=== PATIENT | female | born 1945 | race Caucasian/White ===

== ENCOUNTER 2017-01-28 08:07 | Emergency (ER) | payer MEDICARE ==
[2017-01-28 08:27] LABS: Glucose,Whole Blood 134 mg/dL (75-99)
[2017-01-28] MEDS ORDERED: SODIUM CHLORIDE 0.9% 1,000 ML IV ONE (08:29)
--- NOTE | 2017-01-28 08:43 | ED ---
General Adult HPI - General Chief complaint: Syncope Stated complaint: Head lac/passed out Time Seen by Provider: 01/28/17 08:15 Source: patient, RN notes reviewed Mode of arrival: wheelchair Limitations: no limitations - History of Present Illness Initial comments: This is a 71-year-old female who presents to the emergency department after having been lightheaded and falling down. Patient states she went to the bathroom this morning and was a little sweaty and felt lightheaded and then she fell backwards hitting her head on the counter on the way down and cut the back of her head. Patient states she never was completely unconscious but she was too weak to get up she laid on the floor for 10 minutes. Patient denies any chest pain palpitations difficulty breathing or shortness of breath. Patient denies any fever chills. Patient states currently she feels fine except for a little throbbing in the back of her head. Patient denies any neck pain patient denies numbness weakness. Patient denies any back pain patient denies any extremity pain. Patient denies any abdominal pain. - Related Data Home Medications Medication Instructions Recorded Confirmed Metoprolol Tartrate [Lopressor] 50 mg PO DAILY 01/28/17 01/28/17 Triamterene-Hctz 75-50Mg [Maxzide 1 tab PO DAILY 01/28/17 01/28/17 75-50] amLODIPine [Norvasc] 10 mg PO DAILY 01/28/17 01/28/17 Allergies Allergy/AdvReac Type Severity Reaction Status Date / Time prednisone AdvReac Nausea & Verified 01/28/17 09:09 Vomiting & Diarrhea Review of Systems ROS Statement: Those systems with pertinent positive or pertinent negative responses have been documented in the HPI. ROS Other: All systems not noted in ROS Statement are negative. Past Medical History Past Medical History: Hypertension History of Any Multi-Drug Resistant Organisms: None Reported Past Surgical History: Tubal Ligation Past Psychological History: No Psychological Hx Reported Smoking Status: Current every day smoker Past Alcohol Use History: Occasional Past Drug Use History: None Reported General Exam - General Exam Comments Initial Comments: GENERAL: Patient is well-developed and well-nourished. Patient is nontoxic and well- hydrated and is in no acute distress. ENT: Neck is soft and supple. No significant lymphadenopathy is noted. Oropharynx is clear. Moist mucous membranes. Neck has full range of motion without eliciting any pain. EYES: The sclera were anicteric and conjunctiva were pink and moist. Extraocular movements were intact and pupils were equal round and reactive to light. Eyelids were unremarkable. PULMONARY: Unlabored respirations. Good breath sounds bilaterally. No audible rales rhonchi or wheezing was noted. CARDIOVASCULAR: There is a regular rate and rhythm without any murmurs gallops or rubs. ABDOMEN: Soft and nontender with normal bowel sounds. No palpable organomegaly was noted. There is no palpable pulsatile mass. SKIN: Patient has a laceration to the posterior aspect of her scalp measuring about 3 cm. NEUROLOGIC: Patient is alert and oriented x3. Cranial nerves II through XII are grossly intact. Motor and sensory are also intact. Normal speech, volume and content. Symmetrical smile. MUSCULOSKELETAL: Normal extremities with adequate strength and full range of motion. No lower extremity swelling or edema. No calf tenderness. LYMPHATICS: No significant lymphadenopathy is noted PSYCHIATRIC: Normal psychiatric evaluation. Limitations: no limitations Course Vital Signs 01/28/17 01/28/17 01/28/17 08:16 08:49 09:48 Temperature 97.1 F L Pulse Rate 60 60 Pulse Rate [ 56 L Sitting] Pulse Rate [ 60 Standing] Pulse Rate [ 56 L Supine] Respiratory 16 18 Rate Blood Pressure 105/58 135/64 Blood Pressure 121/60 [Sitting] Blood Pressure 110/70 [Standing] Blood Pressure 117/59 [Supine] O2 Sat by Pulse 100 100 Oximetry Procedures - Laceration Laceration #1 Consent Obtained: verbal consent Time Out Performed: Yes Indication: laceration Site: scalp, upper extremity Description: linear Type of Sutures: other (Use oleg 4) Medical Decision Making - Medical Decision Making EKG shows sinus bradycardia 56 bpm [place] interval is 174 Carlo is 84 QT interval 4: 30 for QT C is 418. Patient's EKG shows no ST segment elevation or depression or T wave abnormalities are noted. Patient received a tetanus in the emergency department. I stapled the laceration together and approximated well. CT of the head and neck were normal. Chest x-ray was normal. Patient's foot x- ray was normal. I spoke with Dr. Lux he agreed to see the patient tomorrow morning. Patient did admit that she was a heavy drinker at night and probably does not drink enough fluids before bed. - Lab Data Result diagrams: 01/28/17 08:38 01/28/17 08:38 Lab Results 01/28/17 01/28/17 01/28/17 Range/Units 08:24 08:38 08:38 WBC (3.8-10.6) k/uL RBC (3.80-5.40) m/uL Hgb (11.4-16.0) gm/dL Hct (34.0-46.0) % MCV (80.0-100.0) fL MCH (25.0-35.0) pg MCHC (31.0-37.0) g/dL RDW (11.5-15.5) % Plt Count (150-450) k/uL Neutrophils % % Lymphocytes % % Monocytes % % Eosinophils % % Basophils % % Neutrophils # (1.3-7.7) k/uL Lymphocytes # (1.0-4.8) k/uL Monocytes # (0-1.0) k/uL Eosinophils # (0-0.7) k/uL Basophils # (0-0.2) k/uL PT (9.0-12.0) sec INR (<1.2) APTT (22.0-30.0) sec Sodium 131 L (137-145) mmol/L Potassium 3.5 (3.5-5.1) mmol/L Chloride 86 L (98-107) mmol/L Carbon Dioxide 30 (22-30) mmol/L Anion Gap 15 mmol/L BUN 21 H (7-17) mg/dL Creatinine 0.83 (0.52-1.04) mg/dL Est GFR (MDRD) Af Amer >60 (>60 ml/min/1.73 sqM) Est GFR (MDRD) Non-Af >60 (>60 ml/min/1.73 sqM) Glucose 79 (74-99) mg/dL POC Glucose (mg/dL) 134 H (75-99) mg/dL POC Glu Cardiac Tech ID Rosario aPck Calcium 10.1 (8.4-10.2) mg/dL Magnesium 1.8 (1.6-2.3) mg/dL Total Bilirubin 0.5 (0.2-1.3) mg/dL AST 32 (14-36) U/L ALT 42 (9-52) U/L Alkaline Phosphatase 70 (38-126) U/L Total Creatine Kinase 75 (30-135) U/L CK-MB (CK-2) 3.4 H* (0.0-2.4) ng/mL CK-MB (CK-2) Rel Index 4.5 Troponin I 0.012 (0.000-0.034) ng/mL Total Protein 8.7 H (6.3-8.2) g/dL Albumin 5.2 H (3.5-5.0) g/dL Serum Alcohol <10 mg/dL 01/28/17 01/28/17 Range/Units 08:38 08:38 WBC 9.3 (3.8-10.6) k/uL RBC 4.11 (3.80-5.40) m/uL Hgb 13.3 (11.4-16.0) gm/dL Hct 37.9 (34.0-46.0) % MCV 92.1 (80.0-100.0) fL MCH 32.3 (25.0-35.0) pg MCHC 35.0 (31.0-37.0) g/dL RDW 12.4 (11.5-15.5) % Plt Count 324 (150-450) k/uL Neutrophils % 74 % Lymphocytes % 16 % Monocytes % 4 % Eosinophils % 4 % Basophils % 1 % Neutrophils # 6.9 (1.3-7.7) k/uL Lymphocytes # 1.5 (1.0-4.8) k/uL Monocytes # 0.4 (0-1.0) k/uL Eosinophils # 0.4 (0-0.7) k/uL Basophils # 0.1 (0-0.2) k/uL PT 10.0 (9.0-12.0) sec INR 1.0 (<1.2) APTT 24.1 (22.0-30.0) sec Sodium (137-145) mmol/L Potassium (3.5-5.1) mmol/L Chloride (98-107) mmol/L Carbon Dioxide (22-30) mmol/L Anion Gap mmol/L BUN (7-17) mg/dL Creatinine (0.52-1.04) mg/dL Est GFR (MDRD) Af Amer (>60 ml/min/1.73 sqM) Est GFR (MDRD) Non-Af (>60 ml/min/1.73 sqM) Glucose (74-99) mg/dL POC Glucose (mg/dL) (75-99) mg/dL POC Glu Cardiac Tech ID Calcium (8.4-10.2) mg/dL Magnesium (1.6-2.3) mg/dL Total Bilirubin (0.2-1.3) mg/dL AST (14-36) U/L ALT (9-52) U/L Alkaline Phosphatase (38-126) U/L Total Creatine Kinase (30-135) U/L CK-MB (CK-2) (0.0-2.4) ng/mL CK-MB (CK-2) Rel Index Troponin I (0.000-0.034) ng/mL Total Protein (6.3-8.2) g/dL Albumin (3.5-5.0) g/dL Serum Alcohol mg/dL Disposition Clinical Impression: Near syncope, Scalp laceration, Dehydration Disposition: HOME SELF-CARE Condition: Good Instructions: Laceration (ED), Dehydration (ED) Additional Instructions: Patient should have oleg removed in 7 days. Referrals: Bert Lux Jr, DO [Primary Care Provider] - 1-2 days Time of Disposition: 10:53
[2017-01-28] MEDS ORDERED: LIDOCAINE/EPINEPHR/TETRACAINE 5 ML BOTTLE TOPICAL STA (08:56)
[2017-01-28 09:05] LABS: Partial Thromboplastin Time 24.1 sec (22.0-30.0)
[2017-01-28 09:07] LABS: ALT 42 U/L (9-52); AST 32 U/L (14-36); Alcohol <10 mg/dL; Alkaline Phosphatase 70 U/L (38-126); Anion Gap 15 mmol/L; Blood Urea Nitrogen 21 mg/dL (7-17); Calcium 10.1 mg/dL (8.4-10.2); Carbon Dioxide 30 mmol/L (22-30); Chloride 86 mmol/L (98-107); Glucose 79 mg/dL (74-99); Magnesium 1.8 mg/dL (1.6-2.3); Non-African American GFR(MDRD) >60 (>60 ml/min/1.73 sqM); Potassium 3.5 mmol/L (3.5-5.1); Sodium 131 mmol/L (137-145); Total Bilirubin 0.5 mg/dL (0.2-1.3); Total Protein 8.7 g/dL (6.3-8.2)
[2017-01-28 09:19] LABS: Basophils # (A) 0.1 k/uL (0-0.2); Basophils % (A) 1 %; CH 32.4; CHCM 35.3; Eosinophils # (A) 0.4 k/uL (0-0.7); Eosinophils % (A) 4 %; HCT 37.9 % (34.0-46.0); HDW 1.96; HGB 13.3 gm/dL (11.4-16.0); Luc # (Auto) 0.17; Luc % (Auto) 2; Lymphocytes # (A) 1.5 k/uL (1.0-4.8); Lymphocytes % (A) 16 %; MCH 32.3 pg (25.0-35.0); MCV 92.1 fL (80.0-100.0); Mean Platelet Volume 6.7; Monocytes # (A) 0.4 k/uL (0-1.0); Monocytes % (A) 4 %; Neutrophils # (A) 6.9 k/uL (1.3-7.7); Neutrophils % (A) 74 %; RBC 4.11 m/uL (3.80-5.40); RDW 12.4 % (11.5-15.5); WBC 9.3 k/uL (3.8-10.6); WBC (Perox) 8.87
--- NOTE | 2017-01-28 09:28 | XR ---
EXAMINATION TYPE: XR chest 2V DATE OF EXAM: 01/28/2017 COMPARISON: NONE HISTORY: Chest pain after syncopal episode today. TECHNIQUE: Frontal and lateral views of the chest are obtained. FINDINGS: There is chronic parenchymal change without suspicious focal air space opacity, pleural ef fusion, or pneumothorax seen. The cardiac silhouette size is mildly enlarged. The osseous structur es are demineralized. Underlying S-shaped scoliosis is present. IMPRESSION: Chronic changes and mild cardiomegaly without acute pulmonary process.
--- NOTE | 2017-01-28 09:30 | XR ---
EXAMINATION TYPE: XR foot complete LT DATE OF EXAM: 01/28/2017 CLINICAL HISTORY: Left foot pain after twisting injury. TECHNIQUE: Frontal, lateral, and oblique images of the left foot are obtained. COMPARISON: None FINDINGS: Osseous structures are demineralized which is noted to lower radiographic sensitivity. The re is no acute fracture/dislocation evident in the left foot. There is flexion and varus positioning of distal fourth toe. Pretty prominent flexion of second through fifth toes is noted. There is high a rch with moderate size inferior calcaneal spur. There appears to be some sclerosis and chronic destru ction of the anterior calcaneus perhaps product of remote trauma or infection. There is prominent spu rring along lateral margin of calcaneocuboid articulation. There is mild spurring at talonavicular ar ticulation. The overlying soft tissue appears unremarkable. IMPRESSION: There is no acute fracture or dislocation in the left foot.
[2017-01-28 09:37] LABS: Troponin I 0.012 ng/mL (0.000-0.034)
[2017-01-28 09:38] LABS: Creatine Kinase MB 3.4 ng/mL (0.0-2.4)
--- NOTE | 2017-01-28 09:43 | CT ---
EXAMINATION TYPE: CT brain linda delgado DATE OF EXAM: 01/28/2017 COMPARISON: NONE HISTORY: Patient complains of syncopal episode with fall today. Patient hit back of head, laceration at site. Patient complains of headache and dizziness. CT DLP: 1429 mGycm. Automated Exposure Control for Dose Reduction was Utilized. TECHNIQUE: CT scan of the head and cervical spine are performed without contrast. FINDINGS: There is no acute intracranial hemorrhage or midline shift identified. The ventricles an d sulci are within normal limits in size for patient's age. There is 6 mm mucous retention cyst or po lyp in the posterior right sphenoid sinus lateral aspect. There is moderate mucosal thickening involv ing left frontal sinus. Remainder paranasal sinuses are clear. The globes are intact bilaterally. The calvarium is intact. Cervical spine is visualized in its entirety from C1 through upper thoracic levels and demonstrates r eversal of normal cervical curvature centered at C5 level without evidence of acute fracture or dislo cation. Prevertebral soft tissue appears within normal limits. The C1-C2 articulation is within nor mal limits on the coronal images. Osseous structures are demineralized. Vertebral body heights are maintained. There is advanced disc s pace narrowing with subchondral cystic change and endplate sclerosis with mild to moderate anterior s purring C5-C6 level. There is moderate disc space narrowing with subchondral cystic changes C6-C7 lev el. Posterior spur disc complex effaces anterior thecal sac C5-C6 level on sagittal images. Review of axial images shows right-sided uncovertebral facet degenerative changes C2-C3 and C3-C4 lev el not causing significant neural foraminal narrowing. Axial images at C4-C5 level show right-sided uncovertebral facet degenerative changes causing moderat e to severe right-sided neural foraminal narrowing. Axial images at C5-C6 level show left paracentral spur disc complex effacing anterolateral thecal sac and causing asymmetric moderate left-sided neural foraminal narrowing. Axial images at C6-C7 and C7-T1 levels are felt within normal limits. There is mild to moderate calcified plaque at bilateral carotid bulbs. Visualized lung apices are antwon ar. IMPRESSION: 1. There is no acute fracture or dislocation evident in the cervical spine. Demineralization and mult ilevel degenerative changes are seen most prominent at C5-C6 level with further details as noted abov e. 2. No acute intracranial hemorrhage or midline shift is seen.
[2017-01-28 09:49] VITALS: RESP 18
[2017-01-28] MEDS ORDERED: DIPH,PERTUS(ACELL)TETVAC-LF 0.5 ML VIAL IM ONE (10:49)
[2017-01-28 11:08] VITALS: BP 116/58; PULSE 63; TEMP 97.9
== END 2017-01-28 11:18 | disposition home or self-care (01) ==
LOC: EC 08:07
DX: S01.01XA Laceration without foreign body of scalp, initial encounter (principal); E86.0 Dehydration; R55 Syncope and collapse; I10 Essential (primary) hypertension; Z23 Encounter for immunization; F17.200 Nicotine dependence, unspecified, uncomplicated; Z79.899 Other long term (current) drug therapy; Z88.8 Allergy status to other drugs, medicaments and biological substances; W18.09XA Striking against other object with subsequent fall, initial encounter; Y92.091 Bathroom in other non-institutional residence as the place of occurrence of the external cause
CPT/HCPCS: 12002; 36415; 70450; 71020; 72125; 80053; 80320; 82550; 82553; 83735; 84484; 85025; 85610; 85730; 90471; 90715; 93005; 96360; 99285

== ENCOUNTER 2017-01-29 09:12 | Emergency (ER) | payer MEDICARE ==
[2017-01-29 09:17] VITALS: BP 138/65; PULSE 75; RESP 20; TEMP 98
--- NOTE | 2017-01-29 09:39 | ED ---
General Adult HPI - General Chief complaint: Extremity Injury, Lower Stated complaint: leg pain Time Seen by Provider: 01/29/17 09:19 Source: patient, family, RN notes reviewed Mode of arrival: wheelchair Limitations: physical limitation - History of Present Illness Initial comments: Patient is a 71-year-old female who presents emergency room today with chief complaint of pain to the left leg. She does admit that she's been experiencing pain down the left foot and left knee. She states she was seen here yesterday a syncopal episode of the back of her head. Also admits that she had pain in the left foot yesterday did have an x-ray which was negative. States having a difficult time ambulating due to pain in the left foot and also expresses some pain now to the left knee that she did not noticed she went home. Patient denies any new injuries or traumas. She denies any other complaints. Patient denies any recent fever, chills, shortness of breath, chest pain, back pain, abdominal pain, nausea or vomiting, numbness or tingling, dysuria or hematuria, constipation or diarrhea, headaches or visual changes, or any other complaints. - Related Data Home Medications Medication Instructions Recorded Confirmed Metoprolol Tartrate [Lopressor] 50 mg PO DAILY 01/28/17 01/29/17 Triamterene-Hctz 75-50Mg [Maxzide 1 tab PO DAILY 01/28/17 01/29/17 75-50] amLODIPine [Norvasc] 10 mg PO DAILY 01/28/17 01/29/17 Allergies Allergy/AdvReac Type Severity Reaction Status Date / Time prednisone AdvReac Nausea & Verified 01/29/17 09:27 Vomiting & Diarrhea Review of Systems ROS Statement: Those systems with pertinent positive or pertinent negative responses have been documented in the HPI. ROS Other: All systems not noted in ROS Statement are negative. Past Medical History Past Medical History: Hypertension History of Any Multi-Drug Resistant Organisms: None Reported Past Surgical History: Tubal Ligation Past Psychological History: No Psychological Hx Reported Smoking Status: Current every day smoker Past Alcohol Use History: Occasional Past Drug Use History: None Reported General Exam - General Exam Comments Initial Comments: General: The patient is awake and alert, in no distress, and does not appear acutely ill. Eye: Pupils are equal, round and reactive to light, extra-ocular movements are intact. No nystagmus. There is normal conjunctiva bilaterally. No signs of icterus. Ears, nose, mouth and throat: There are moist mucous membranes and no oral lesions. Neck: The neck is supple, there is no tenderness or JVD. Cardiovascular: There is a regular rate and rhythm. No murmur, rub or gallop is appreciated. Respiratory: Lungs are clear to auscultation, respirations are non-labored, breath sounds are equal. No wheezes, stridor, rales, or rhonchi. Musculoskeletal: Does have normal appearance of the left knee no swelling bruising or deformity. She does have moderate swelling over the top of the left foot. It is locally tender over the top the left foot from the third to fifth metatarsals. Mild tenderness to the posterior aspect of left knee. Strength 5/5. Sensation intact. Pulses equal bilaterally 2+. Neurological: A&O x 3. CN II-XII intact, There are no obvious motor or sensory deficits. Coordination appears grossly intact. Speech is normal. Skin: Skin is warm and dry and no rashes or lesions are noted. Psychiatric: Cooperative, appropriate mood & affect, normal judgment. Limitations: physical limitation Course Vital Signs 01/29/17 09:14 Temperature 98.0 F Pulse Rate 75 Respiratory 20 Rate Blood Pressure 138/65 O2 Sat by Pulse 100 Oximetry Medical Decision Making - Medical Decision Making Patient's x-rays negative for any acute fracture dislocation. Results were discussed with the patient. Patient will be discharged home advised follow-up with orthopedics if symptoms persist. Patient states she's having a difficult time with ambulation due to the pain. Will be given a prescription for or walker as she states she does not do well on crutches. Patient advised follow- up Disposition Clinical Impression: Foot sprain, Knee pain Disposition: HOME SELF-CARE Condition: Good Instructions: Foot Sprain (ED) Additional Instructions: Please follow-up with orthopedic/family doctor in the next 2-5 days of symptoms have not improved. Please return to emergency room if the symptoms increase or worsen or for any other concerns. Referrals: Bert Lux Jr, DO [Primary Care Provider] - 1-2 days Hal Al MD [STAFF PHYSICIAN] - 1-2 days Time of Disposition: 10:09
--- NOTE | 2017-01-29 09:52 | XR ---
EXAMINATION TYPE: XR knee complete LT DATE OF EXAM: 01/29/2017 COMPARISON: NONE HISTORY: 71-year-old female posterior left knee pain after twisting injury TECHNIQUE: 3 views FINDINGS: Diffuse osteopenia. There is a small knee joint effusion. Extensor mechanism is intact. No acute frac ture, subluxation, or dislocation seen. IMPRESSION: 1. No acute osseous abnormality seen. 2. Osteopenia. 3. Small knee joint effusion. If concern for internal derangement, MRI can be considered.
== END 2017-01-29 10:46 | disposition home or self-care (01) ==
LOC: EC 09:12
DX: S93.602A Unspecified sprain of left foot, initial encounter (principal); M25.562 Pain in left knee; I10 Essential (primary) hypertension; F17.200 Nicotine dependence, unspecified, uncomplicated; Z79.899 Other long term (current) drug therapy; Z88.8 Allergy status to other drugs, medicaments and biological substances; W19.XXXA Unspecified fall, initial encounter; Y92.009 Unspecified place in unspecified non-institutional (private) residence as the place of occurrence of the external cause
CPT/HCPCS: 99283

== ENCOUNTER 2017-06-30 11:22 | Emergency (ER) | payer MEDICARE, OTHER ==
[2017-06-30 11:50] VITALS: PULSE 62; RESP 18
--- NOTE | 2017-06-30 12:45 | XR ---
EXAMINATION TYPE: XR knee complete LT DATE OF EXAM: 06/30/2017 COMPARISON: NONE HISTORY: Knee pain TECHNIQUE: 3 views FINDINGS: I see no fracture nor dislocation. There is mild soft tissue swelling anterior to the [place]. There is vascular calcification. There is no definite knee joint effusion. IMPRESSION: No acute abnormality of the left knee.
--- NOTE | 2017-06-30 13:19 | ED ---
Fall HPI <Celestine Neal - Last Filed: 06/30/17 13:37> - General Source: patient Mode of arrival: ambulatory <Abiola Saab - Last Filed: 06/30/17 13:45> - General Chief Complaint: Fall Stated Complaint: [facility] FALL, LEFT LEG AND LIP INJURY Time Seen by Provider: 06/30/17 11:59 - History of Present Illness Initial Comments: This 71-year-old female present the emergency department today chief complaint of left knee pain and lower lip swelling. Patient reports that yesterday while she was at work she tripped over a rug. She reports that she fell on her left knee, and landed on the side of her face and her lower lip. She reports she had some bleeding from her lower lip yesterday but no significant laceration in the lip. She reports she had no loss consciousness or other head injury. She denies any other pain related to the fall. She reports she noticed an effusion over her knee. She is concerned for possible fracture. She has been ambulating with a walker. She is to follow-up with Dr. Neal physician specialist away. Patient reports no numbness and tingling down her legs. Denies any other symptoms. (Abiola Saab) - Related Data Home Medications Medication Instructions Recorded Confirmed Metoprolol Tartrate [Lopressor] 50 mg PO DAILY 01/28/17 06/30/17 Triamterene-Hctz 75-50Mg [Maxzide 1 tab PO DAILY 01/28/17 06/30/17 75-50] amLODIPine [Norvasc] 10 mg PO DAILY 01/28/17 06/30/17 Previous Rx's Medication Instructions Recorded Naproxen 500 mg PO BID #20 tablet 01/29/17 HYDROcodone/APAP 5-325MG [[place] 1 - 2 tab PO TID #15 tab 06/30/17 5-325] Naproxen 500 mg PO BID #20 tablet 06/30/17 Allergies Allergy/AdvReac Type Severity Reaction Status Date / Time prednisone AdvReac Nausea & Verified 06/30/17 11:55 Vomiting & Diarrhea Review of Systems ROS Other: All systems not noted in ROS Statement are negative. <Celestine Neal - Last Filed: 06/30/17 13:37> ROS Other: All systems not noted in ROS Statement are negative. <Abiola Saab - Last Filed: 06/30/17 13:45> ROS Statement: Those systems with pertinent positive or pertinent negative responses have been documented in the HPI. Past Medical History Past Medical History: Hypertension History of Any Multi-Drug Resistant Organisms: None Reported Past Surgical History: Tubal Ligation Past Psychological History: No Psychological Hx Reported Smoking Status: Current every day smoker Past Alcohol Use History: Occasional Past Drug Use History: None Reported <Abiola Saab - Last Filed: 06/30/17 13:45> General Exam <Celestine Neal - Last Filed: 06/30/17 13:37> Limitations: no limitations General appearance: alert, in no apparent distress Head exam: Present: atraumatic, normocephalic, normal inspection, other (Some swelling over her left side of her lower lip.) Eye exam: Present: normal appearance, PERRL, EOMI. Absent: scleral icterus, conjunctival injection, periorbital swelling ENT exam: Present: normal exam, normal oropharynx, mucous membranes moist, other (Neuro lower lip. No abrasion. Teeth are intact.) Neck exam: Present: normal inspection. Absent: tenderness, meningismus, lymphadenopathy Respiratory exam: Present: normal lung sounds bilaterally. Absent: respiratory distress, wheezes, rales, rhonchi, stridor Cardiovascular Exam: Present: regular rate, normal rhythm, normal heart sounds. Absent: systolic murmur, diastolic murmur, rubs, gallop, clicks GI/Abdominal exam: Present: soft, normal bowel sounds. Absent: distended, tenderness, guarding, rebound, rigid Extremities exam: Present: normal inspection, full ROM, normal capillary refill. Absent: tenderness, pedal edema, joint swelling, calf tenderness Left Knee exam: Present: tenderness, swelling, effusion (Is a significant effusion over the left knee. Pain with flexion and extension. Patient does have approximately 45 of flexion without difficulty. No synechia laxity on valgus or varus strain.). Absent: normal inspection, full ROM, pain/laxity with valgus , pain/laxity with varus Lower Leg exam: Present: normal inspection, full ROM Ankle exam: Present: normal inspection, full ROM Foot/Toe exam: Present: normal inspection, full ROM Neurovascular tendon exam: Present: no vascular compromise Gait: observed and limited by pain Back exam: Present: normal inspection Neurological exam: Present: alert, oriented X3, CN II-XII intact Psychiatric exam: Present: normal affect, normal mood Skin exam: Present: warm, dry, intact, normal color. Absent: rash <Abiola Saba - Last Filed: 06/30/17 13:45> - General Exam Comments Initial Comments: 2-year-old female. No distress. (Abiola Saab) Course <Celestine Neal - Last Filed: 06/30/17 13:37> <Abiola Saab - Last Filed: 06/30/17 13:45> Vital Signs 06/30/17 06/30/17 11:47 13:30 Temperature 97.1 F L 97.2 F L Pulse Rate 62 62 Respiratory 18 18 Rate Blood Pressure 139/66 126/74 O2 Sat by Pulse 99 98 Oximetry - Reevaluation(s) Reevaluation #1: 06/30/17 13:37 PA supervision: Patient's case was reviewed x-ray show no evidence of acute findings no fracture subluxations. I do agree with the assessment and plan ( Celestine Neal) Medical Decision Making <Celestine Neal - Last Filed: 06/30/17 13:37> - Radiology Data Radiology results: report reviewed <Leeanna Saabily - Last Filed: 06/30/17 13:45> - Medical Decision Making Year old female presents emergency department today after a fall yesterday at work. 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 She has some swelling over her lower lip. She also has a significant effusion over her left knee. No other injuries related to the fall. Her lip is swollen, but no significant abrasion. Full range of motion. General loss consciousness or head injury. She is alert and oriented 4. Patient's left knee does have significant effusion noted. She has normal sensation to the ankle and feet. She has limited range of motion due to the pain and swelling. Patient's left knee x-ray shows no acute fracture. She was placed in an Adiel wrap. She does have a knee brace at home. She is ambulating with a walker currently. I discussed that she needs follow-up with physician specialist for possible MRI. Discussed possibility of meniscal tear or ACL or PCL tear. Patient family understands treatment plan will comply. Discussed over her for pain medication is have laboratory medicine. [facility] within the next 1-2 days. (Abiola Saab) - Radiology Data X-ray shows no acute abnormalities. (Abiola Saab) Disposition <Celestine Neal - Last Filed: 06/30/17 13:37> Time of Disposition: 13:17 <Abiola Saab - Last Filed: 06/30/17 13:45> Clinical Impression: Effusion, left knee Disposition: HOME SELF-CARE Condition: Good Instructions: Knee Sprain (ED) Additional Instructions: Patient is to use the knee brace. Rest ice, and elevate the extremity. Follow -up with orthopedic. Return to the emergency department if any alarming signs or symptoms occur. Prescriptions: HYDROcodone/APAP 5-325MG [[place] 5-325] 1 - 2 tab PO TID #15 tab Naproxen 500 mg PO BID #20 tablet Referrals: Bert Lux Jr, DO [Primary Care Provider] - 1-2 days Pepe Feng MD [STAFF PHYSICIAN] - 1-2 days
[2017-06-30 13:41] VITALS: BP 126/74; TEMP 97.2
== END 2017-06-30 13:35 | disposition home or self-care (01) ==
LOC: EC 11:22
DX: M25.462 Effusion, left knee (principal); R22.0 Localized swelling, mass and lump, head; I10 Essential (primary) hypertension; F17.200 Nicotine dependence, unspecified, uncomplicated; Z79.899 Other long term (current) drug therapy; Z88.8 Allergy status to other drugs, medicaments and biological substances; W18.09XA Striking against other object with subsequent fall, initial encounter; Y92.69 Other specified industrial and construction area as the place of occurrence of the external cause; Y99.0 Civilian activity done for income or pay
CPT/HCPCS: 99283

== ENCOUNTER → 2017-11-18 | Outpatient (CLI) | payer MEDICARE ==
--- NOTE | 2017-11-18 16:54 | US ---
EXAMINATION TYPE: US kidneys/renal and bladder DATE OF EXAM: 11/18/2017 COMPARISON: NONE CLINICAL HISTORY: R31.9 Hematuria R10.9 Flank pain. Back pain EXAM MEASUREMENTS: Right Kidney: 9.0 x 3.9 x 4.3 cm Left Kidney: 10.8 x 4.6 x 4.5 cm Right Kidney: no evidence of hydronephrosis or mass Left Kidney: no evidence of hydronephrosis or mass Bladder: appears wnl Bilateral Jets seen: yes There is no evidence for hydronephrosis at this point in time. No nephrolithiasis is seen. No tracee s are identified. The urinary bladder is anechoic. Bilateral ureteral jets are seen. IMPRESSION: Normal retroperitoneal sonogram exam.
== END | disposition home or self-care (01) ==
LOC: RADUSWWP 16:00
PROVIDERS: ATTEND Urology
DX: R10.9 Unspecified abdominal pain (principal); R31.9 Hematuria, unspecified
CPT/HCPCS: 76770

== ENCOUNTER 2019-12-04 15:55 | Emergency (ER) | payer MEDICARE ==
[2019-12-04 16:05] VITALS: TEMP 97.9
--- NOTE | 2019-12-04 16:14 | ED ---
Fall HPI - General Chief Complaint: Fall Stated Complaint: Fall Time Seen by Provider: 12/04/19 15:58 Source: patient, EMS, RN notes reviewed, old records reviewed Mode of arrival: EMS - History of Present Illness Initial Comments: This is a 74-year-old female DEL with fall. Fall from standing, follow hello doing gardening. Patient is severe right arm pain right shoulder pain and neck pain did hit her head. No loss of consciousness no blood thinners patient denies drugs or alcohol today MD Complaint: fall -: minutes(s) Fall From: standing When Fall Occurred: 1 hour [employer] Fall Witnessed: yes, by family Place Fall Occurred: home Loss of Consciousness: none Prolonged Down Time?: no Symptoms Prior to Fall: none Location: head, chest Location - Extremities: Right: Shoulder Severity: moderate Severity scale (1-10): 4 Quality: dull, stabbing Context: tripped/slipped Associated Symptoms: denies - Related Data Home Medications Medication Instructions Recorded Confirmed Metoprolol Tartrate [Lopressor] 50 mg PO DAILY 01/28/17 06/30/17 Triamterene-Hctz 75-50Mg [Maxzide 1 tab PO DAILY 01/28/17 06/30/17 75-50] amLODIPine [Norvasc] 10 mg PO DAILY 01/28/17 06/30/17 Previous Rx's Medication Instructions Recorded Naproxen 500 mg PO BID #20 tablet 01/29/17 HYDROcodone/APAP 5-325MG [[place] 1 - 2 tab PO TID #15 tab 06/30/17 5-325] Naproxen 500 mg PO BID #20 tablet 06/30/17 Allergies Allergy/AdvReac Type Severity Reaction Status Date / Time prednisone AdvReac Nausea & Verified 06/30/17 11:55 Vomiting & Diarrhea Review of Systems ROS Statement: Those systems with pertinent positive or pertinent negative responses have been documented in the HPI. ROS Other: All systems not noted in ROS Statement are negative. Past Medical History Past Medical History: Hypertension History of Any Multi-Drug Resistant Organisms: None Reported Past Surgical History: Tubal Ligation Past Psychological History: No Psychological Hx Reported Smoking Status: Current every day smoker Past Alcohol Use History: Occasional Past Drug Use History: None Reported General Exam Limitations: no limitations General appearance: alert, in no apparent distress Head exam: Present: atraumatic, normocephalic, normal inspection Eye exam: Present: normal appearance, PERRL, EOMI. Absent: scleral icterus, conjunctival injection, periorbital swelling ENT exam: Present: normal exam, mucous membranes moist Neck exam: Present: normal inspection. Absent: tenderness, meningismus, lymphadenopathy Respiratory exam: Present: normal lung sounds bilaterally. Absent: respiratory distress, wheezes, rales, rhonchi, stridor Cardiovascular Exam: Present: regular rate, normal rhythm, normal heart sounds. Absent: systolic murmur, diastolic murmur, rubs, gallop, clicks GI/Abdominal exam: Present: soft, normal bowel sounds. Absent: distended, tenderness, guarding, rebound, rigid Extremities exam: Present: normal inspection, full ROM, normal capillary refill. Absent: tenderness, pedal edema, joint swelling, calf tenderness Back exam: Present: normal inspection Neurological exam: Present: alert, oriented X3, CN II-XII intact Psychiatric exam: Present: normal affect, normal mood Skin exam: Present: warm, dry, intact, normal color. Absent: rash Course Vital Signs 12/04/19 16:01 Temperature 97.9 F Pulse Rate 59 L Respiratory 18 Rate Blood Pressure 126/77 O2 Sat by Pulse 97 Oximetry - Reevaluation(s) Reevaluation #1: 12/04/19 16:40 Medical records reviewed Reevaluation #2: 12/04/19 17:53 Patient's pain is currently controlled Medical Decision Making - Medical Decision Making 74 female DF status post fall patient does have significant right humerus fracture spell fracture of the right proximal humerus patient is placed in sling here in the ER all up with orthopedics on outpatient basis - Radiology Data Radiology results: report reviewed (CT brain C-spine negative for acute disease x-ray chest as well as right shoulder shows proximal humerus fracture), image reviewed Disposition Clinical Impression: Fall, Right humeral fracture Disposition: HOME SELF-CARE Condition: Good Instructions (If sedation given, give patient instructions): Proximal Humerus Fracture (ED) Is patient prescribed a controlled substance at d/c from ED?: No Referrals: Bert Lux Jr, DO [Primary Care Provider] - 1-2 days Odin Barahona DO [Doctor of Osteopathic Medicine] - 1-2 days
[2019-12-04] MEDS ORDERED: SODIUM CHLORIDE 0.9% 1,000 ML IV STA (16:31)
[2019-12-04] MEDS ORDERED: MORPHINE SULFATE 4 MG/ML SYRINGE IVP STA (16:31)
--- NOTE | 2019-12-04 17:08 | CT ---
EXAMINATION TYPE: CT brain cspine wo con DATE OF EXAM: 12/04/2019 COMPARISON: 01/28/2017 HISTORY: trauma, fall Head and neck pain CT DLP: 1362 mGycm Automated exposure control for dose reduction was used. There is mild cerebral cortical atrophy. There is no mass effect nor midline shift. There is no sign of intracranial hemorrhage. Calvarium is intact. The skull base is intact. There is some debris in th e external auditory canals bilaterally. There is 1 cm mucous retention cyst in the right side sphenoi d sinus. There is some straightening of the cervical spine. There is disc space narrowing at C5-6 and C6-7 wit h spurring. There is multilevel hypertrophic cervical facet arthropathy. The skull base is intact. Th ere is very slight anterior subluxation of C4 in relation to C5. IMPRESSION: Spondylotic changes in the cervical spine. Degenerative minimal subluxation at C4-5. No change compar ed to old exam. Cerebral atrophy. No acute intracranial abnormality. Brain unchanged compared to old exam.
--- NOTE | 2019-12-04 17:51 | XR ---
EXAMINATION TYPE: XR shoulder complete RT DATE OF EXAM: 12/04/2019 COMPARISON: NONE HISTORY: Shoulder pain. Fall. TECHNIQUE: 2 views FINDINGS: There is a comminuted fracture of the proximal shaft of the humerus with large butterfly fr agment that measures 10 cm in length. There is no dislocation at the shoulder joint. Scapula appears intact. Fracture line extends to the humeral neck. There is probably involvement of the greater tuber osity of the humerus also. IMPRESSION: Comminuted fracture proximal shaft of the humerus with displacement up to 1 cm.
--- NOTE | 2019-12-04 17:52 | XR ---
EXAMINATION TYPE: XR chest 1V DATE OF EXAM: 12/04/2019 COMPARISON: 01/28/2017 HISTORY: Fall. Pain. TECHNIQUE: FINDINGS: There is no heart failure nor confluent pneumonic infiltrate. Costophrenic angles are clear . There is no pleural effusion or pneumothorax. The ribs appear intact. There is comminuted fracture of the proximal right humerus. IMPRESSION: No active cardiopulmonary disease. Heart and lungs unchanged.
[2019-12-04] MEDS ORDERED: ACET/COD 300 MG/30 MG STARTER PACK 6 TAB BTL PO STA (17:53)
--- NOTE | 2019-12-04 17:54 | ED ---
Disposition Clinical Impression: Fall, Right humeral fracture Disposition: HOME SELF-CARE Condition: Good Instructions (If sedation given, give patient instructions): Proximal Humerus Fracture (ED) Is patient prescribed a controlled substance at d/c from ED?: No Referrals: Odin Barahona DO [Doctor of Osteopathic Medicine] - 1-2 days Bert Lux Jr, DO [Primary Care Provider] - 1-2 days Procedures - Orthopedic Splinting/Casting Injury #1 Side: right Upper Extremity Injury Location: shoulder Upper Extremity Immobilizer: sling/shoulder immobilizer
[2019-12-04 18:04] VITALS: BP 138/84; PULSE 63; RESP 20
== END 2019-12-04 18:21 | disposition home or self-care (01) ==
LOC: EC 15:55
DX: S42.201A Unspecified fracture of upper end of right humerus, initial encounter for closed fracture (principal); I10 Essential (primary) hypertension; F17.200 Nicotine dependence, unspecified, uncomplicated; Z79.899 Other long term (current) drug therapy; Z88.8 Allergy status to other drugs, medicaments and biological substances; W18.09XA Striking against other object with subsequent fall, initial encounter; Y93.H2 Activity, gardening and landscaping; Y92.007 Garden or yard of unspecified non-institutional (private) residence as the place of occurrence of the external cause
CPT/HCPCS: 73030; 71045; 72125; 70450; 99285; 96374; 96361; J2270

== ENCOUNTER 2019-12-05 08:51 | Emergency (ER) | payer MEDICARE ==
[2019-12-05 09:00] VITALS: RESP 18; TEMP 97.3
[2019-12-05] MEDS ORDERED: KETOROLAC 60 MG/2 ML VIAL IM STA (09:34)
[2019-12-05] MEDS ORDERED: HYDROmorphone 1 MG/ML 1 ML SYRINGE IM STA (09:34)
--- NOTE | 2019-12-05 09:58 | ED ---
Recheck HPI - General Chief Complaint: Recheck/Abnormal Lab/Rx Stated Complaint: Shoulder pain Time Seen by Provider: 12/05/19 09:03 Source: patient, EMS, RN notes reviewed, old records reviewed Mode of arrival: EMS Limitations: no limitations - History of Present Illness Initial Comments: Patient is a 74-year-old female who presents emergency department today for a chief complaint of worsening right shoulder and arm pain. Patient was seen in the emergency department yesterday and diagnosed with a right humerus fracture. She was placed in a sling. She reports last night she is discharged with Tylenol codeine and she had a very difficult night last night managing her pain. She reports she was unable to sleep or move to undergo bathroom. Patient is here with her . She states that she has not been able to contact [facility] at this time. - Related Data Home Medications Medication Instructions Recorded Confirmed Metoprolol Tartrate [Lopressor] 50 mg PO DAILY 01/28/17 06/30/17 Triamterene-Hctz 75-50Mg [Maxzide 1 tab PO DAILY 01/28/17 06/30/17 75-50] amLODIPine [Norvasc] 10 mg PO DAILY 01/28/17 06/30/17 Previous Rx's Medication Instructions Recorded Naproxen 500 mg PO BID #20 tablet 01/29/17 HYDROcodone/APAP 5-325MG [[place] 1 - 2 tab PO TID #15 tab 06/30/17 5-325] Naproxen 500 mg PO BID #20 tablet 06/30/17 HYDROcodone/APAP 10-325MG [[place] 1 tab PO Q6HR PRN 3 Days #12 tab 12/05/19 10-325] Ibuprofen [Motrin] 600 mg PO Q6HR PRN #20 tab 12/05/19 Allergies Allergy/AdvReac Type Severity Reaction Status Date / Time prednisone AdvReac Nausea & Verified 12/05/19 08:56 Vomiting & Diarrhea Review of Systems ROS Statement: Those systems with pertinent positive or pertinent negative responses have been documented in the HPI. ROS Other: All systems not noted in ROS Statement are negative. Past Medical History Past Medical History: Hypertension History of Any Multi-Drug Resistant Organisms: None Reported Past Surgical History: Tubal Ligation Past Psychological History: No Psychological Hx Reported Smoking Status: Current every day smoker Past Alcohol Use History: None Reported Past Drug Use History: None Reported General Exam - General Exam Comments Initial Comments: 74 -year-old female. No distress. Limitations: no limitations General appearance: alert, in no apparent distress Head exam: Present: normocephalic Eye exam: Present: normal appearance, PERRL, EOMI. Absent: scleral icterus, conjunctival injection, periorbital swelling ENT exam: Present: normal exam, mucous membranes moist Neck exam: Present: normal inspection Respiratory exam: Present: normal lung sounds bilaterally. Absent: respiratory distress, wheezes, rales, rhonchi, stridor Cardiovascular Exam: Present: regular rate, normal rhythm, normal heart sounds. Absent: systolic murmur, diastolic murmur, rubs, gallop, clicks GI/Abdominal exam: Present: soft, normal bowel sounds. Absent: distended, tenderness, guarding, rebound, rigid Extremities exam: Present: normal inspection, full ROM, normal capillary refill. Absent: tenderness, pedal edema, joint swelling, calf tenderness Right Shoulder Exam: Present: normal inspection, full ROM, tenderness (Patient tennis and swelling over the proximal humerus. Patient is currently in a sling.) Upper Arm exam: Present: normal inspection, full ROM Elbow exam: Present: normal inspection, full ROM Back exam: Present: normal inspection Neurological exam: Present: alert, oriented X3, CN II-XII intact Psychiatric exam: Present: normal affect, normal mood Skin exam: Present: warm, dry, intact, normal color. Absent: rash Course Vital Signs 12/05/19 08:57 Temperature 97.3 F L Pulse Rate 64 Respiratory 18 Rate Blood Pressure 125/74 O2 Sat by Pulse 96 Oximetry Medical Decision Making - Medical Decision Making Physical is a 74-year-old female presents today for complaints of persistent right arm pain. She is diagnosed with a right comminuted humerus fracture yesterday. She is placed in a sling. Patient is not being managed at home with Tylenol codeine. At this time Patient has full registry np strength, normal sensation of the hand. She still sling. Cyst giving the Patient to dose of IM pain medication for acute pain management and a short course of stronger pain medication did be discharged with at this time. I also discussed reports of using anti-inflammatory medication. Patient will be following up with orthopedic tomorrow. SINCE HER RETURN PARAMETERS WERE DISCUSSED. - Radiology Data Radiology results: report reviewed X-ray shows comminuted proximal shaft of the humerus fracture with displacement up to 1 cm. Disposition Clinical Impression: Right humeral fracture Disposition: HOME SELF-CARE Condition: Good Instructions (If sedation given, give patient instructions): Arm Fracture in Adults (ED) Additional Instructions: Patient should remain in the sling. Follow-up with orthopedics tomorrow. Patient states pain medication as prescribed. Return to emergency department if any alarming signs or symptoms occur. Prescriptions: Ibuprofen [Motrin] 600 mg PO Q6HR PRN #20 tab PRN Reason: Pain HYDROcodone/APAP 10-325MG [[place] 10-325] 1 tab PO Q6HR PRN 3 Days #12 tab PRN Reason: Pain Is patient prescribed a controlled substance at d/c from ED?: Yes If prescribed controlled substance>3 days was MAPS reviewed?: Prescribed <3 Days If opioid is for acute pain is fill amount 7 days or less?: Yes If Rx opioid, was Start Talking consent form obtained?: Yes Referrals: Bert Lux Jr, DO [Primary Care Provider] - 1-2 days Odin Barahona DO [Doctor of Osteopathic Medicine] - 1-2 days Time of Disposition: 09:55
[2019-12-05 09:59] VITALS: BP 132/78; PULSE 60
== END 2019-12-05 10:30 | disposition home or self-care (01) ==
LOC: EC 08:51
DX: S42.351A Displaced comminuted fracture of shaft of humerus, right arm, initial encounter for closed fracture (principal); I10 Essential (primary) hypertension; F17.200 Nicotine dependence, unspecified, uncomplicated; Z79.899 Other long term (current) drug therapy; Z88.8 Allergy status to other drugs, medicaments and biological substances; X58.XXXA Exposure to other specified factors, initial encounter; Y93.89 Activity, other specified
CPT/HCPCS: 99284; 96372 ×2; J1885; J1170

== ENCOUNTER → 2020-08-28 | Outpatient (CLI) | payer MEDICARE ==
--- NOTE | 2020-08-28 19:25 | BD ---
EXAMINATION TYPE: Axial Bone Density DATE OF EXAM: 08/28/2020 COMPARISON: 10/16/2009 CLINICAL HISTORY: Postmenopausal screening Height: 63.5 IN Weight: 138 LBS FRAX RISK QUESTIONS: History of Fracture in Adulthood: RT HUMERUS AGE 75; RT ANKLE AGE 66; RT ELBOW AGE 66 Current Tobacco Use: YES RISK FACTORS HISTORY OF: Active: YES Diet low in dairy products/other sources of calcium: YES Postmenopausal woman: AGE 56 Lost more than 2 inches in height since high school: YES 07/01" MEDICATIONS: Additional Medications: HIGH BLOOD PRESSURE MEDS, CRANBERRY EXAM MEASUREMENTS: Bone mineral densitometry was performed using the [employer] System. Bone mineral density as measured about the Lumbar spine is: ----- L1-L4(G/cm2): 0.981 T Score Values are as follows: ----- L2: -3.2 ----- L3: -0.7 ----- L4: -2.1 ----- L1-L4: -1.8 Bone mineral density has: Decreased -4.1% since study of: 10/16/2009 Bone mineral density about the R hip (g/cm2): 0.707 Bone mineral density about the L hip (g/cm2): 0.661 T Score values are as follows: -----R Neck: -2.4 -----L Neck: -2.7 -----R Total: -2.3 -----L Total: -2.4 Bone mineral density has: Decreased -7.8% since study of: 10/16/2009 IMPRESSION: Osteoporosis (T Score less than -2.5). There is increased fracture risk and therapy is usually indicated based on age. Re-Screen 1-2 years. NOTE: T-SCORE=SD OF THE YOUNG ADULT MEAN.
--- NOTE | 2020-08-29 14:24 | MM ---
Reason for exam: screening (asymptomatic). Last mammogram was performed 6 years and 8 months ago. History: Patient is postmenopausal. Family history of breast cancer in mother at age 88. Physical Findings: A clinical breast exam by your physician is recommended on an annual basis and results should be correlated with mammographic findings. MG 3D Screening Mammo W/Cad Bilateral CC, MLO, and XCCL view(s) were taken. Prior study comparison: January 11, 2014, bilateral MG screening mammo w CAD. October 16, 2009, bilateral digital screening mammogram. The breast tissue is heterogeneously dense. This may lower the sensitivity of mammography. No significant changes when compared with prior studies. ASSESSMENT: Benign, BI-RAD 2 RECOMMENDATION: Routine screening mammogram of both breasts in 1 year.
== END ==
LOC: RADMAMWWP 12:25
PROVIDERS: ATTEND Family Medicine
DX: Z12.31 Encounter for screening mammogram for malignant neoplasm of breast (principal); Z13.820 Encounter for screening for osteoporosis; M81.0 Age-related osteoporosis without current pathological fracture; Z80.3 Family history of malignant neoplasm of breast; Z78.0 Asymptomatic menopausal state
CPT/HCPCS: 77063; 77067; 77080

== ENCOUNTER 2022-10-27 17:02 | Emergency (ER) | payer MEDICARE ==
[2022-10-27 17:12] VITALS: BP 123/74; PULSE 66; RESP 18; TEMP 98
[2022-10-27] MEDS ORDERED: PENICILLIN VK 500MG STARTER 4 TAB BTL PO STA (17:23)
[2022-10-27] MEDS ORDERED: ACET/COD 300 MG/30 MG STARTER PACK 6 TAB BTL PO STA (17:23)
--- NOTE | 2022-10-27 17:28 | ED ---
General Adult HPI - General Chief complaint: Dental/Oral Stated complaint: Facial swelling Time Seen by Provider: 10/27/22 17:13 Source: patient, RN notes reviewed Mode of arrival: ambulatory Limitations: no limitations - History of Present Illness Initial comments: Patient is a pleasant 77-year-old female presenting to the emergency department with concern for toothache. Onset of symptoms was minimal a few days ago, otherwise mostly started within the last 24 hours. Patient has discomfort right lower tooth with some associated swelling. Swelling is mild. No difficulty with breathing. Patient is tolerating oral intake. No history of similar symptoms previously. - Related Data Home Medications Medication Instructions Recorded Confirmed Metoprolol Tartrate [Lopressor] 50 mg PO DAILY 01/28/17 06/30/17 Triamterene-Hctz 75-50Mg [Maxzide 1 tab PO DAILY 01/28/17 06/30/17 75-50] amLODIPine [Norvasc] 10 mg PO DAILY 01/28/17 06/30/17 Previous Rx's Medication Instructions Recorded Naproxen 500 mg PO BID #20 tablet 01/29/17 HYDROcodone/APAP 5-325MG [Center Line 1 - 2 tab PO TID #15 tab 06/30/17 5-325] Naproxen 500 mg PO BID #20 tablet 06/30/17 HYDROcodone/APAP 10-325MG [Center Line 1 tab PO Q6HR PRN 3 Days #12 tab 12/05/19 10-325] Ibuprofen [Motrin] 600 mg PO Q6HR PRN #20 tab 12/05/19 Penicillin V Potassium [Pen Vee K] 500 mg PO QID #36 tablet 10/27/22 Allergies Allergy/AdvReac Type Severity Reaction Status Date / Time prednisone AdvReac Nausea & Verified 12/05/19 08:56 Vomiting & Diarrhea Review of Systems ROS Statement: Those systems with pertinent positive or pertinent negative responses have been documented in the HPI. ROS Other: All systems not noted in ROS Statement are negative. Constitutional: Denies: fever Eyes: Denies: eye pain ENT: Reports: as per HPI, dental pain Respiratory: Denies: cough Cardiovascular: Denies: chest pain Endocrine: Denies: fatigue Gastrointestinal: Denies: abdominal pain Genitourinary: Denies: urgency Musculoskeletal: Denies: back pain Skin: Denies: rash Neurological: Denies: weakness Past Medical History Past Medical History: Hypertension History of Any Multi-Drug Resistant Organisms: None Reported Past Surgical History: Orthopedic Surgery, Tubal Ligation Additional Past Surgical History / Comment(s): cyst removed from neck, right elbow surgery, Past Psychological History: No Psychological Hx Reported Smoking Status: Current every day smoker Past Alcohol Use History: None Reported Past Drug Use History: None Reported General Exam Limitations: no limitations General appearance: alert, in no apparent distress Head exam: Present: normocephalic Eye exam: Present: normal appearance ENT exam: Present: other (Right lower premolar with significant decay, majority of tooth missing. Minimal swelling. No identifiable abscess. externally there is mild swelling in the right mandibular region) Neck exam: Present: normal inspection Respiratory exam: Present: normal lung sounds bilaterally Cardiovascular Exam: Present: regular rate, normal rhythm Neurological exam: Present: alert Psychiatric exam: Present: normal affect, normal mood Skin exam: Present: normal color Course Vital Signs 10/27/22 17:08 Temperature 98.0 F Pulse Rate 66 Respiratory 18 Rate Blood Pressure 123/74 O2 Sat by Pulse 96 Oximetry Medical Decision Making - Medical Decision Making Was pt. sent in by a medical professional or institution ([facility], BOOKKEEPER RECEPTIONIST, urgent care, hospital, or long term...) When possible be specific @ -No Did you speak to anyone other than the patient for history (EMS, parent, family, police, friend...)? What history was obtained from this source @ -No Did you review nursing and triage notes (agree or disagree)? Why? @ -I reviewed and agree with nursing and triage notes Were old charts reviewed (outside hosp., previous admission, EMS record, old EKG, old radiological studies, urgent care reports/EKG's, long term records)? Report findings @ -No old charts were reviewed Differential Diagnosis (chest pain, altered mental status, abdominal pain women, abdominal pain men, vaginal bleeding, weakness, fever, dyspnea, syncope, headache, dizziness, GI bleed, back pain, seizure, CVA, palpatations, mental health)? @ -not applicable EKG interpreted by me (3pts min.). @ -As above X-rays interpreted by me (1pt min.). @ -None done CT interpreted by me (1pt min.). @ -None done U/S interpreted by me (1pt. min.). @ -None done What testing was considered but not performed or refused? (CT, X-rays, U/S, labs)? Why? @ -None What meds were considered but not given or refused? Why? @ -None Did you discuss the management of the patient with other professionals (professionals i.e. , PA, BOOKKEEPER RECEPTIONIST, lab, RT, psych nurse, executive secretary social welfare, statue carver, teacher, electronic intelligence officer, adult protective caseworker)? Give summary @ -No Was smoking cessation discussed for >3mins.? @ -No Was critical care preformed (if so, how long)? @ -No Were there social determinants of health that impacted care today? How? (Homelessness, low income, unemployed, alcoholism, drug addiction, transportation, low edu. Level, literacy, decrease access to med. care, senior living, rehab)? @ -No Was there de-escalation of care discussed even if they declined (Discuss DNR or withdrawal of care, Hospice)? DNR status @ -No What co-morbidities impacted this encounter? (DM, HTN, Smoking, COPD, CAD, Cancer, CVA, ARF, Chemo, Hep., AIDS, mental health diagnosis, sleep apnea, morbid obesity)? @ -None Was patient admitted / discharged? Hospital course, mention meds given and route, prescriptions, significant lab abnormalities, going to OR and other pertinent info. @ -Patient we discharged with antibiotics and close dental follow-up. Patient states she will see her dentist tomorrow. Patient denies return for increased pain, swelling or fever or worsening symptoms Undiagnosed new problem with uncertain prognosis? @ -No Drug Therapy requiring intensive monitoring for toxicity (Heparin, Nitro, Insulin, Cardizem)? @ -No Were any procedures done? @ -No Diagnosis/symptom? @ -Dentalgia Acute, or Chronic, or Acute on Chronic? @ -Acute Uncomplicated (without systemic symptoms) or Complicated (systemic symptoms)? @ -default Side effects of treatment? @ -No Exacerbation, Progression, or Severe Exacerbation? @ -No Poses a threat to life or bodily function? How? (Chest pain, [place], [place], pneumonia, PE, COPD, DKA, ARF, appy, cholecystitis, CVA, Diverticulitis, Homicidal, Suicidal, threat to staff... and all critical care pts) @ -No Disposition Clinical Impression: Toothache Disposition: HOME SELF-CARE Condition: Stable Instructions (If sedation given, give patient instructions): Toothache (ED), Dental Abscess (ED) Additional Instructions: Please do follow-up tomorrow with dentist as planned. Please also follow-up with primary care physician. Return for increased pain, swelling, redness, fever, difficulty breathing, difficulty swallowing, worsening symptoms or other concerns. Prescription has been sent to pharmacy. Prescriptions: Penicillin V Potassium [Pen Vee K] 500 mg PO QID #36 tablet Is patient prescribed a controlled substance at d/c from ED?: No Referrals: Bert Lux Jr, DO [Primary Care Provider] - 1-2 days Time of Disposition: 17:27
== END 2022-10-27 17:54 | disposition home or self-care (01) ==
LOC: EC 17:02
DX: K02.9 Dental caries, unspecified (principal); I10 Essential (primary) hypertension; F17.200 Nicotine dependence, unspecified, uncomplicated; Z79.899 Other long term (current) drug therapy; Z88.8 Allergy status to other drugs, medicaments and biological substances
CPT/HCPCS: 99283

== ENCOUNTER → 2024-05-04 | Outpatient (CLI) | payer MEDICARE ==
--- NOTE | 2024-05-04 12:54 | CTL ---
EXAMINATION TYPE: CT Low Dose Lung DATE OF EXAM ORDERED: 05/04/2024 COMPARISON: Chest radiograph 12/04/2019 CLINICAL INDICATION: Female, 78 years old with history of Z12.2 SCREENING LUNG CA F17.210 CURRENT SMO KER; PHH, personal tobacco use, Lung cancer screening, History of Smoking/tobacco use. TECHNIQUE: Low dose computed tomography scan was performed through the chest at 1 mm thick sections a nd reconstructed images in multiple planes at 1 mm and [address] DLP: 56.[address] CTDI: 1.7 mGy Automated exposure control for dose reduction was used. CT DIAGNOSTIC QUALITY: Satisfactory FINDINGS: Nodules: Punctate right lower lobe calcified granuloma. LUNGS: COPD: Severity: None Fibrosis: Severity: None Lymph nodes: None Other findings: Minimal bibasilar linear atelectasis. RIGHT PLEURAL SPACE: Effusion: None Calcification: None Thickening: None Pneumothorax: None LEFT PLEURAL SPACE: Effusion: None Calcification: None Thickening: None Pneumothorax: None HEART: Heart Size: Mildly Enlarged Coronary Calcification: Small Pericardial Effusion: None OTHER FINDINGS: Upper abdomen: None Bony thorax: S-shaped scoliotic curvature of the visualized spine. Mild multilevel degenerative disc disease. Supraclavicular region: None Other: Mild atherosclerotic calcification of the aorta and its branches. IMPRESSION: No clinically significant pulmonary nodules. CT LUNG RAD AND CT CHEST RECOMMENDATION: Lung-Rad 2 Benign Appearance or Behavior: Continue annual sc reening with LDCT in 12 months. S Modifier (other clinically significant findings): None [facility], , 05/04/2024 12:52 PM
== END | disposition home or self-care (01) ==
LOC: RADCTMAIN 11:28
PROVIDERS: ATTEND Family Medicine
DX: Z12.2 Encounter for screening for malignant neoplasm of respiratory organs (principal); F17.210 Nicotine dependence, cigarettes, uncomplicated; I70.0 Atherosclerosis of aorta; I51.7 Cardiomegaly; J84.10 Pulmonary fibrosis, unspecified
CPT/HCPCS: 71271

== ENCOUNTER → 2024-05-04 | Outpatient (CLI) | payer MEDICARE ==
--- NOTE | 2024-05-10 13:28 | MM ---
Reason for Exam: Screening (asymptomatic). Last mammogram was performed 3 year(s) and 8 month(s) ago. Patient History: Menarche at age 14. First Full-Term at age 19. Postmenopausal. Mother had breast cancer, age 88. Risk Values: Lucrecia 5 year model risk: 3.2%. NCI Lifetime model risk: 6.2%. Prior Study Comparison: 10/16/2009 Bilateral Screening Mammogram, [facility]. 01/11/2014 Bilateral Screening Mammogram, [facility]. 08/28/2020 Bilateral Screening Mammogram, [facility]. Tissue Density: The breasts are heterogeneously dense, which may obscure small masses. Findings: Analyzed By CAD. There is no suspicious group of microcalcifications or new suspicious mass in either breast. Overall Assessment: Benign, BI-RAD 2 Management: Screening Mammogram of both breasts in 1 year. . Patient should continue monthly self-breast exams. A clinical breast exam by your physician is recommended on an annual basis. This exam should not preclude additional follow-up of suspicious palpable abnormalities. Note on Lucrecia scores and lifetime risk: 1. A Lucrecia score greater than 3% is considered moderate risk. If this is the case, consider specialist referral to assess eligibility for a risk reducing agent. 2. If overall lifetime risk for the development of breast cancer is 20% or higher, the patient may qualify for future screening with alternating mammogram and breast MRI. [facility], , 05/04/2024 11:32 AM. Electronically signed and approved by: Mahendra Camp M.D. Radiolog[facility]
== END | disposition home or self-care (01) ==
LOC: RADMAMWWP 11:02
PROVIDERS: ATTEND Family Medicine
DX: Z12.31 Encounter for screening mammogram for malignant neoplasm of breast (principal); Z78.0 Asymptomatic menopausal state; Z80.3 Family history of malignant neoplasm of breast; R92.333 Mammographic heterogeneous density, bilateral breasts
CPT/HCPCS: 77063; 77067